=== PATIENT | male | born 1955 | race Two or more races ===

== ENCOUNTER 2021-03-02 11:30 | Inpatient (IN) | payer OTHER ==
[~2021-03-02] VITALS: Ht 190.5 cm; Wt 109.3 kg
[2021-03-02] MEDS ORDERED: ZESTRIL20 MG PO (14:32)
[2021-03-02] MEDS ORDERED: JANUMET 50-5001 EACH PO (14:32)
[2021-03-02] MEDS ORDERED: LANTUS SOL100 UNIT/1 (14:33)
[2021-03-02] MEDS ORDERED: LIPITOR40 MG PO (14:33)
[2021-03-08] MEDS ORDERED: LISINOPRIL2.5 MG (10:11)
[2021-03-08] MEDS ORDERED: OFLOXACIN5 ML (10:12)
[2021-03-08] MEDS ORDERED: KETOROLAC TROMET5 ML (10:12)
[2021-03-11] MEDS ORDERED: OXYC1TAB9 PO (14:27)
[2021-03-11] MEDS ORDERED: QUESTRAN PACKET4 GM PO (14:28)
== END 2021-03-11 16:07 | disposition home or self-care (01) | DRG 331 ==
LOC: O/R 03-08 08:13 → SURH 03-08 11:30
PROVIDERS: ADMIT Surgery; ATTEND Surgery
PROC: 07BC0ZX Excision of Pelvis Lymphatic, Open Approach, Diagnostic (ICD-10-PCS; 2021-03-08)
PROC: 0DTF0ZZ Resection of Right Large Intestine, Open Approach (ICD-10-PCS; principal; 2021-03-08 12:00)
DX: C18.2 Malignant neoplasm of ascending colon (principal); I10 Essential (primary) hypertension; E13.9 Other specified diabetes mellitus without complications; D12.2 Benign neoplasm of ascending colon